=== PATIENT | female | born 1975 | race Hispanic/Latino ===

== ENCOUNTER → 2016-11-13 | Outpatient (CLI) | payer BC ==
--- NOTE | 2016-11-13 11:48 | MAM ---
EXAM DESCRIPTION: MAMMO BREAST DIAGNOSTIC UNILATERAL Images were reviewed with R2 computer-aided detection. CLINICAL HISTORY: Personal history of breast carcinoma right breast 1 o'clock status preoperative chemotherapy. Biopsy grade 3 infiltrating ductal carcinoma diagnosed on 04/2016 COMPARISON: 04/2016 mammogram and ultrasound examination. FINDINGS: Craniocaudal MLO and true lateral films are compared with the preoperative evaluation from 05/01. Glandular tissue is heterogeneously dense. 11 cm from the nipple right breast 10 o'clock, small group of new microcalcifications is demonstrated. Spot compression magnification views confirm indeterminate morphology with slight internal variation and closely grouped distribution in a segmental pattern. There are 2 small clusters at the 10 o'clock portion of the right breast. The prior site of biopsy proven tumor does not demonstrate any mammographic abnormality. Scattered benign-appearing calcifications are shown. Directed ultrasound exam is correlated with prior study. A biopsy clip was not placed. A persistent tumor is not identified. The glandular tissue appears normal and is fairly consistent with the prior tumor location, current ultrasound image number 20 compared to prior ultrasound image number 32. Sonography of the right axilla, far lateral breast and internal mammary chain rib demonstrate no lymphadenopathy. Small benign appearing lymph nodes are seen in the axial and lateral right breast. Sonography was performed of the breast tissue bilaterally and in its entirety with no additional sonographic abnormality. IMPRESSION: Suspicious exam. Patient with known grade 3 right breast infiltrating ductal carcinoma status post preoperative chemotherapy and market response. No residual tumor is identified mammographically or sonographically right breast 1 o'clock. New clustered microcalcifications, indeterminate right breast 10 o'clock. Approximately 11 cm from the nipple. BIRAD CATEGORY: 6 KNOWN BX-PROVEN MALIGNANCY. New clustered microcalcifications upper-outer quadrant right breast 10 o'clock, indeterminate. RECOMMENDATION: FOLLOW-UP: 0 Technique needle sampling right breast 10 o'clock if breast conservation is considered. Significant response achieved on pre operative chemotherapy treatment. According to the [employer], yearly mammograms are recommended starting at age 40 and continuing as long as a woman is in good health. Any breast change noted on a breast self-exam should be reported promptly to the patient's healthcare provider. Breast MRI is recommended for women with an approximately 20-25% or greater lifetime risk of breast cancer, including women with a strong family history of breast or ovarian cancer and women who have been treated for Hodgkin's disease. Electronically signed by: Viri Torre 11/13/2016 11:47
--- NOTE | 2016-11-13 13:02 | US ---
EXAM DESCRIPTION: US BREAST UNILATERAL CLINICAL HISTORY: Diagnosis of grade 3 infiltrating ductal carcinoma right breast status post preoperative chemotherapy COMPARISON: None available at the time of the exam. FINDINGS: This examination is interpreted with the diagnostic mammogram. IMPRESSION: Significant response to preoperative chemotherapy without residual tumor identified sonographically or mammographically. The patient does have a new clustered microcalcifications 10 o'clock right breast. RECOMMENDATION: Stereotactic or excisional biopsy right breast microcalcifications if lumpectomy is a clinical consideration. Findings and recommendations were discussed with the patient and her . BIRAD CATEGORY: 6 KNOWN BX-PROVEN MALIGNANCY Electronically signed by: Viri Torre 11/13/2016 13:00
== END ==
LOC: MAMMO 08:31
PROVIDERS: ATTEND Internal Medicine Hematology & Oncology
DX: C50.211 Malignant neoplasm of upper-inner quadrant of right female breast (principal)

== ENCOUNTER 2016-12-04 05:46 | Inpatient (IN) | payer BC ==
[2016-12-04] MEDS ORDERED: LACTATED RINGERS 1,000 ML ONE (06:11)
[2016-12-04] MEDS ORDERED: ceFAZolin SODIUM 1 GM VIAL ONE (06:11)
[2016-12-04] MEDS ORDERED: SODIUM CHL 0.9% 100ML MINI-BAG 100 ML IVPB ONE (06:11)
[2016-12-04] MEDS ORDERED: fentaNYL CITRATE INJ 50 MCG/ML AMP ONE (07:02)
--- NOTE | 2016-12-04 09:39 | HP ---
CHIEF COMPLAINT: Biopsy proven carcinoma of the right breast. HISTORY OF PRESENT ILLNESS: The patient is a 41-year-old female who found a right breast mass. Workup was consistent with a malignancy. She underwent a needle core biopsy which revealed HER2/mike positive ductal carcinoma. She underwent neoadjuvant chemotherapy with complete resolution of the mass. Repeat mammogram and ultrasound revealed no signs of the previous mass, but a new area of suspicious calcifications at the 10 oclock position in the upper outer quadrant. She was offered biopsy followed by possible lumpectomy and radiation therapy versus mastectomy with immediate reconstruction and after discussion, she has chosen to proceed with a right modified radical mastectomy and she is admitted for that today. PAST MEDICAL HISTORY: 1. Port placement. 2. Laparoscopic cholecystectomy. FAMILY HISTORY: Positive for maternal uterine malignancy. SOCIAL HISTORY: The patient is and a mother of two. She does not use tobacco or abuse alcohol. No history of street drug use. MEDICATIONS: None. ALLERGIES: NO KNOWN DRUG ALLERGIES. REVIEW OF SYSTEMS: There has been no weight loss. She has had no shortness of breath, chest pain, no change in her bowel habits. She denies urinary symptoms. PHYSICAL EXAMINATION: GENERAL: The patient is awake, alert, cooperative, in no acute distress. VITAL SIGNS: The patient is currently afebrile, normotensive. HEENT: Sclerae nonicteric. Mucous membranes moist. NECK: Supraclavicular and axilla are without obvious adenopathy. BREAST: No masses on either side. No skin changes. There is a port with well- healed incisions on the left upper breast. CHEST: Equal breath sounds. HEART: Regular rate and rhythm. ABDOMEN: Soft and benign without organomegaly. PELVIC/RECTAL: Deferred. EXTREMITIES: Without cyanosis, clubbing or edema. LABORATORY: Urine is clear with specific gravity 1.020. White count 4.8, hemoglobin 10.5. She has 221,000 platelet count, 54% neutrophils. HCG negative. Potassium 3.4, creatinine 0.67, sodium 142. Liver function tests within normal limits. ASSESSMENT: 1. Biopsy proven carcinoma of the right breast status post neoadjuvant chemotherapy. PLAN: The patient is admitted today for right modified radical mastectomy. #[id number] [facility]
[2016-12-04] MEDS ORDERED: PROPOFOL 200 MG/20 ML VIAL IV ONE (12:00)
[2016-12-04] MEDS ORDERED: LIDOCAINE 1% 10 ML VIAL INJ ONE (12:00)
[2016-12-04] MEDS ORDERED: ONDANSETRON INJ 4 MG/2 ML VIAL ONE (12:00)
[2016-12-04] MEDS ORDERED: METOCLOPRAMIDE HCL INJ 10 MG/2 ML VIAL ONE (12:00)
[2016-12-04] MEDS ORDERED: ONDANSETRON INJ 4 MG/2 ML VIAL IV PRN (12:27)
[2016-12-04] MEDS ORDERED: KCL 20MEQ/D5 1/2NS 1,000 ML IVS PRN (12:27)
[2016-12-04] MEDS ORDERED: HYDROmorphone HCL INJ 2 MG/ML VIAL IV PRN (12:27)
--- NOTE | 2016-12-04 13:57 | OP ---
DATE OF PROCEDURE: 12/04/16 PREOPERATIVE DIAGNOSIS: 1. Carcinoma of the right breast status post neoadjuvant chemotherapy. POSTOPERATIVE DIAGNOSIS: 1. Carcinoma of the right breast status post neoadjuvant chemotherapy. PROCEDURE: 1. Right modified radical mastectomy. SURGEON: Venkata Randall MD. TUFTING MACHINE OPERATOR SINGLE NEEDLE: None. ANESTHESIA: General laryngeal mask anesthesia. INDICATION: The patient is a 41-year-old female who was found to have a right breast mass. She underwent needle core biopsy which revealed the infiltrating carcinoma. It was HER2 positive, so she underwent neoadjuvant chemotherapy which ended with complete resolution of the mass, both physically and by mammographic and ultrasound inspection. However, her preoperative mammogram revealed new indeterminate calcifications at the 10 oclock position, so the patient was offered needle core biopsy followed by possible lumpectomy and radiation therapy versus modified radical mastectomy versus modified radical mastectomy with immediate reconstruction. After significant discussion in my office, she is admitted today for right modified radical mastectomy. FINDINGS: Nerves were identified and were functioning. No significant pathology was identified. There was a significant amount of sclerosis in the area of the tumor. No other pathology was identified. PROCEDURE: After adequate general laryngeal mask anesthesia was obtained, the patient was prepped and draped in the usual sterile manner. At this time, a surgical time-out was taken. An elliptical incision was then fashioned around the nipple-areolar complex, first with a marking pen and then with a sharp knife. The superior flap was raised first with a sharp knife and then electrocautery down to the breast tissue. Thyroid grasping clamps were placed on the skin edge and the superior flap was elevated with blunt dissection and electrocautery. Dissection was carried into the axilla laterally to the border of the sternum medially and to the clavipectoral fascia superiorly and onto the pectoralis muscle. When this was done, hemostasis was noted to be adequate. A moist sponge was placed under this flap and then the inferior flap was taken in a like manner with the dissection medially and laterally to the sternal border and axilla, respectively, into the rectus abdominis fascia inferiorly. When this was done, the breast was dissected off the pectoralis muscle using sharp dissection and electrocautery in the usual manner from superolateral to superomedial and then inferiorly. When this was done, the dissection was carried into the axilla, then the axilla was entered and the dissection in the axilla was carried to the axillary vein superiorly, into the thoracodorsal bundle and the long thoracic nerve of [place]. When this was done, the specimen was removed from the axilla intact and the specimen was sent for pathologic evaluation. The wound was then irrigated copiously with saline. A small area of oozing was controlled with electrocautery. The nerves were again simulated and showed good muscle tone. Drains were then introduced through the inferior flap, one to the axilla and one to the chest wall. They were sutured in place with 3-0 Nylon ligatures. When this was done, the skin edges were approximated with a running 3-0 Vicryl from each side, then the wound was irrigated through the incision and aspirated out through the drains. The skin edges were then approximated with skin stapler. Sterile pressure dressings were applied. The patient was awakened and taken to the Recovery Room in stable condition. Estimated blood loss was 150 mL. All sponge, needle and instrument counts were correct. #[id number] [facility]
[2016-12-04] MEDS ORDERED: MORPHINE SULFATE INJ 10 MG/ML VIAL ONE ×2 (15:29→20:00)
[2016-12-04] MEDS ORDERED: SODIUM CHLORIDE 0.9% 1000ML 1,000 ML ONE (18:31)
[2016-12-04] MEDS ORDERED: SODIUM CHLORIDE 0.9% 10 ML VIAL ONE ×2 (18:31→20:00)
[2016-12-05] MEDS ORDERED: KCL 20MEQ/D5 1/2NS 1,000 ML IVS ONE (08:06)
[2016-12-05] MEDS ORDERED: HYDROcodone 5MG/APAP 325MG 1 EA TAB ONE (08:06)
[2016-12-05] MEDS ORDERED: MORPHINE SULFATE INJ 10 MG/ML VIAL ONE (08:15)
[2016-12-05] MEDS: KCL 20MEQ/D5 1/2NS 1,000 ML IVS PRN ×2 (08:20→19:17)
[2016-12-05] MEDS ORDERED: SODIUM CHLORIDE 0.9% (FLUSH) 10 ML SYG IV PRN (08:39)
[2016-12-05] MEDS ORDERED: SODIUM CHLORIDE 0.9% 10 ML VIAL IV PRN (08:40)
[2016-12-05] MEDS ORDERED: IV SET AND CAP CHANGE INJ INJ SCH (09:00)
[2016-12-05] MEDS: ENOXAPARIN SODIUM 40 MG/0.4 ML SYG SUBCU SCH ×2 (10:33→11:05)
[2016-12-05] MEDS: HYDROcodone 5MG/APAP 325MG 1 EA TAB PO PRN ×3 (12:51→23:38)
[2016-12-06] MEDS: KCL 20MEQ/D5 1/2NS 1,000 ML IVS PRN (05:00)
[2016-12-06] MEDS: HYDROcodone 5MG/APAP 325MG 1 EA TAB PO PRN ×2 (06:19→11:05)
[2016-12-06 07:34] VITALS: BP 94/58; TEMP 97; O2SAT 97
[2016-12-06] MEDS: ENOXAPARIN SODIUM 40 MG/0.4 ML SYG SUBCU SCH (09:26)
--- NOTE | 2016-12-06 13:42 | DS ---
SUPERVISING PHYSICIAN: Snuil Dos Santos M.D. FINAL DIAGNOSIS: 1. Carcinoma of the right breast status post neoadjuvant chemotherapy. Pathology and staging are pending. SURGICAL PROCEDURE: 1. Right modified radical mastectomy on 12/04/16. HISTORY OF PRESENT ILLNESS: The patient is a 41-year-old female who found a right breast mass. Workup was consistent with a malignancy. She underwent a needle core biopsy which revealed HER2/mike positive ductal carcinoma. She underwent neoadjuvant chemotherapy with complete resolution of the mass. Repeat mammogram and ultrasound revealed no signs of the previous mass, but a new area of suspicious calcifications at the 10 oclock position in the upper outer quadrant. She was offered biopsy followed by possible lumpectomy and radiation therapy versus mastectomy with immediate reconstruction and after discussion, she has chosen to proceed with a right modified radical mastectomy and she is admitted for that today. LABORATORY: Hemoglobin 9.4 on the first postoperative day. Pathology is pending. HOSPITAL COURSE: The patient was admitted to the Surgical Suite on the morning of 12/04/16 and underwent the right modified radical mastectomy without complication. The first postoperative 24 hours she had significant pain which was eventually controlled on the first postoperative afternoon with [place]. She was started on a clear liquid diet the evening after surgery but did not really tolerate it well until the next morning. She was then advanced to a regular diet. By the second postoperative morning, her J-P drainage was moderate but still not allowing removal of her drains. Her wound was redressed and her flaps were excellent. The staple lines were intact. There was a moderate hematoma under the superior flap and this was redressed with pressure. At that point, she was discharged home. Condition on discharge was excellent. DISPOSITION: Followup in my office on Thursday. She is to call for an appointment on Thursday. She is discharged on a regular diet. She is told she can use her right arm from the elbow down but not to use her right shoulder significantly. Her understands how to do the dressing changes and to keep the I and O on the J-Ps and recharging them. They also know to call me if they have questions or problems. Her prognosis is pending her pathology report. [facility][id number] [facility]
== END 2016-12-06 11:36 | disposition home or self-care (01) | DRG 583 ==
LOC: AMB 05:46 → MS 20:35
PROVIDERS: ADMIT Surgery; ATTEND Surgery
PROC: 07T50ZZ Resection of Right Axillary Lymphatic, Open Approach (ICD-10-PCS; 2016-12-04)
PROC: 0HTT0ZZ Resection of Right Breast, Open Approach (ICD-10-PCS; principal; 2016-12-04 09:00)
DX: C50.411 Malignant neoplasm of upper-outer quadrant of right female breast (principal); Z92.21 Personal history of antineoplastic chemotherapy

== ENCOUNTER → 2017-06-30 | Outpatient (CLI) | payer BC ==
--- NOTE | 2017-06-30 13:39 | CT ---
EXAM DESCRIPTION: Chest w/Contrast CLINICAL HISTORY: 42 years, Female, MALIGNANT NEOPLASM OF UPPER INNER Q OF UNSPEC FEMALE BREAST COMPARISON: None TECHNIQUE: Thin-section axial CT images are obtained during rapid bolus administration of nonionic IV contrast media. Reconstructed MPR images are created and reviewed as well. This exam was performed according to our departmental dose-optimization program, which includes automated exposure control, adjustment of the mA and/or kV according to patient size and/or use of iterative reconstruction technique. FINDINGS: Lungs are well-expanded and clear without infiltrative change or fibrotic change or emphysematous change or evidence of metastatic disease. No dominant pulmonary mass noted. The visualized the thoracic inlet and superior mediastinum as well as the middle mediastinum and retrosternal regions are unremarkable. No hilar mass is evident. Right breast is surgically absent. A chemotherapy port on the left side is present in the infraclavicular region. Mild S-shaped scoliosis of the thoracic spine is evident without evidence of metastatic disease. Mild degenerative changes are present. Axillary regions are unremarkable. IMPRESSION: 1. Negative examination for metastatic disease without evidence of bony or pulmonary or upper abdominal metastatic disease. 2. Prior right mastectomy and indwelling left-sided chemotherapy port. Electronically signed by: Johnnie Ibarra MD 06/30/2017 1:37 PM CDT
== END | disposition home or self-care (01) ==
LOC: CT 09:17
PROVIDERS: ATTEND Family Medicine
DX: C50.219 Malignant neoplasm of upper-inner quadrant of unspecified female breast (principal)

== ENCOUNTER → 2017-12-02 | Outpatient (CLI) | payer BC ==
--- NOTE | 2017-12-08 10:42 | MAM ---
EXAM DESCRIPTION: 3D Screening, Left : Digital Mammography. CLINICAL HISTORY: 42 years Female SCREEN . Right breast cancer and mastectomy. No family history of breast cancer. Premenopausal. Currently on HRT. COMPARISON: Bilateral digital diagnostic mammography 05/01/2016.. Reports from prior examinations also reviewed. TECHNIQUE: Left breast CC and MLO projection full-field images, 3-D tomosynthesis digital mammographic technique. Also bilateral synthesized CC/ MLO full-field images. CAD not utilized. FINDINGS: Left breast parenchymal density pattern is: Extremely dense breast tissue, which lowers the sensitivity of mammography. No skin thickening or nipple retraction left axillary lymph nodes. Group of microcalcifications in the upper outer quadrant lateral left breast posterior third surrounded by dense fibroglandular tissue. Approximately 8 cm from the nipple. Seen on the prior study but more distinct currently. Second group of microcalcifications is at the 1:00 position in the upper outer quadrant near the posterior nipple line approximately 4 cm from the nipple. These are also present on the prior study but more distinct currently. Surrounded by dense fibroglandular tissue. No distinct focal, stellate mass or density. IMPRESSION: BI-RADS CATEGORY: 0 - INCOMPLETE- Need additional imaging evaluation. FOLLOW-UP: Recall for additional imagin-D tomosynthesis full field LM image left breast. 2-D orthogonal spot magnification images left breast regions of interest. Targeted left breast ultrasound, if needed. Written communication concerning the IMPRESSION and Follow-up, will be mailed to the patient and referring health care provider. Electronically signed by: Janes Cifuentes MD 12/08/2017 10:42 AM SITE LEAD
== END ==
LOC: MAMMO 13:45
PROVIDERS: ATTEND Family Medicine
DX: Z12.31 Encounter for screening mammogram for malignant neoplasm of breast (principal)

== ENCOUNTER → 2017-12-22 | Outpatient (CLI) | payer BC ==
--- NOTE | 2017-12-22 15:20 | MAM ---
DIAGNOSTIC LEFT MAMMOGRAMS HISTORY: Indeterminate microcalcifications in upper outer quadrant of left breast COMPARISON: Screening mammograms of December 02, 2017 TECHNIQUE: Digital 2-D mammograms , and 3-D tomosynthesis,1 of left breast were performed in CC and MLO orientations. Mammo CAD analysis also performed. FINDINGS: Heterogeneously dense fibroglandular tissue identified in left breast. Loosely clustered microcalcifications again identified in the upper outer quadrant of left breast, with benign appearance. Additional benign-appearing microcalcifications scattered in remainder of left breast. No obvious mass lesion or concerning microcalcifications or architectural distortion detected in remainder of left breast. IMPRESSION: No mammographic evidence of malignancy in left breast. BI-RADS: 2, benign findings. Follow-up: Annual surveillance recommended Electronically signed by: Jeff Okeefe MD 12/22/2017 3:19 PM WIND UP OPERATOR
== END ==
LOC: MAMMO 13:07
PROVIDERS: ATTEND Family Medicine
DX: R92.8 Other abnormal and inconclusive findings on diagnostic imaging of breast (principal)
CPT/HCPCS: 77065; G0279

== ENCOUNTER → 2019-05-09 | Outpatient (CLI) | payer BC ==
--- NOTE | 2019-05-10 10:59 | MAM ---
EXAM DESCRIPTION: 3D Screening BILATERAL : Digital Mammography. CLINICAL HISTORY: 44 years Female SCREEN right breast cancer and mastectomy April 2016. No remote family history of breast cancer. Childbirth. Premenopausal. No HRT. Lifetime risk of developing breast cancer (Tyrer-Cuzick model)(%): Not calculated due to personal history of breast cancer. COMPARISON: Left breast screening digital breast tomosynthesis 12/02/2017. Diagnostic left breast digital tomosynthesis 12/22/2017. TECHNIQUE: Left breast CC and MLO projection full-field images, digital tomosynthesis mammographic technique. Left digital 2-D full-field MLO images. CAD not available for tomosynthesis or 2-D images. FINDINGS: Left breast parenchymal density pattern is: Extremely dense breast tissue, which lowers the sensitivity of mammography. No skin thickening or nipple retraction. Scattered solitary microcalcifications. Benign type groups of calcifications upper outer quadrant posterior third. No new focal, stellate mass or density, focal asymmetry , and no suspicious microcalcifications left breast. Stable mammograms compared to prior study. IMPRESSION: Benign exam. BIRAD CATEGORY: 2 BENIGN FINDINGS. RECOMMENDATIONS: FOLLOW UP: Routine digital bilateral mammographic screening, one year interval from April 2019. Written communication explaining the IMPRESSION and follow-up, will be mailed to the patient and referring health care provider. According to the [employer], yearly mammograms are recommended starting at age 40 and continuing as long as a woman is in good health. Any breast change noted on a breast self-exam should be reported promptly to the patient's healthcare provider. Breast MRI is recommended for women with an approximately 20-25% or greater lifetime risk of breast cancer, including women with a strong family history of breast or ovarian cancer and women who have been treated for Hodgkin's disease. A negative mammographic report should not delay tissue diagnosis in patients with significant clinical history or physical findings. Extremely dense breast tissue limits the sensitivity of digital mammography. Electronically signed by: Janes Cifuentes MD 05/10/2019 10:56 AM CDT
== END ==
LOC: MAMMO 13:48
PROVIDERS: ATTEND Family Medicine
DX: Z12.31 Encounter for screening mammogram for malignant neoplasm of breast (principal)

== ENCOUNTER → 2020-05-11 | Outpatient (CLI) | payer BC ==
--- NOTE | 2020-05-14 14:40 | MAM ---
EXAM DESCRIPTION: 3D Screening BILATERAL : Digital Mammography. CLINICAL HISTORY: 45 years Female SCREENING right breast cancer and mastectomy April 2016.. Lifetime risk of developing breast cancer (Tyrer-Cuzick model)(%): Not calculated due to personal history of breast cancer. COMPARISON: Left breast screening digital breast tomosynthesis April 2019 and diagnostic left breast mammography December 2017.. TECHNIQUE: Left breast CC and MLO projection full-field images, digital tomosynthesis mammographic technique. Left breast digital 2-D full-field MLO images. CAD available for 2-D images. FINDINGS: Left breast parenchymal density pattern is: Extremely dense breast tissue, which lowers the sensitivity of mammography. No skin thickening or nipple retraction. . Scattered solitary microcalcifications. Most are in the upper outer quadrant posterior left breast. Tight group of microcalcifications in the upper outer quadrant posterior third left breast are stable with uniform round shape of the calcifications. No new focal, stellate mass or density, focal asymmetry , and no suspicious microcalcifications left breast Stable mammograms compared to prior study. IMPRESSION: Benign exam. BIRAD CATEGORY: 2 BENIGN FINDINGS. RECOMMENDATIONS: FOLLOW UP: Routine digital left breast mammographic screening, one year interval from April 2020. Written communication explaining the IMPRESSION and follow-up, will be mailed to the patient and referring health care provider. According to the [employer], yearly mammograms are recommended starting at age 40 and continuing as long as a woman is in good health. Any breast change noted on a breast self-exam should be reported promptly to the patient's healthcare provider. Breast MRI is recommended for women with an approximately 20-25% or greater lifetime risk of breast cancer, including women with a strong family history of breast or ovarian cancer and women who have been treated for Hodgkin's disease. A negative mammographic report should not delay tissue diagnosis in patients with significant clinical history or physical findings. Extremely dense breast tissue limits the sensitivity of digital mammography. Electronically signed by: Janes Cifuentes MD 05/14/2020 2:38 PM CDT
== END ==
LOC: MAMMO 15:15
PROVIDERS: ATTEND Family Medicine
DX: Z12.31 Encounter for screening mammogram for malignant neoplasm of breast (principal)